=== PATIENT | male | born 1985 | race Caucasian/White ===

== ENCOUNTER 2017-07-30 10:53 | Emergency (ER) | payer OTHER ==
[2017-07-30] MEDS: IBUPROFEN 800 MG TABLET. PO (12:09)
== END 2017-07-30 12:18 | disposition home or self-care (01) ==
LOC: ER 10:53
DX: S29.012A Strain of muscle and tendon of back wall of thorax, initial encounter (principal); I10 Essential (primary) hypertension; E78.00 Pure hypercholesterolemia, unspecified; Z88.0 Allergy status to penicillin; V43.52XA Car driver injured in collision with other type car in traffic accident, initial encounter; Y93.I9 Activity, other involving external motion; Y92.410 Unspecified street and highway as the place of occurrence of the external cause; Y99.8 Other external cause status
CPT/HCPCS: 72072; 99284